=== PATIENT | male | born 1975 | race Caucasian/White ===

== ENCOUNTER 2017-05-06 17:34 | Inpatient (IN) ==
[2017-05-06 18:33] LABS: CALCIUM 8.4 mg/dL (8.8-10.2); POTASSIUM 3.4 mmol/L (3.5-5.1); TOTAL BILIRUBIN 0.4 mg/dL (0.20-1.00); TOTAL PROTEIN 6.2 g/dL (6.3-8.3)
[2017-05-06 18:35] LABS: HEMATOCRIT 17.5 % (42.0-52.0); HEMOGLOBIN 5.2 g/dL (14.0-18.0); LYMPH% 11.4 % (20.5-51.1); MANUAL DIFF NEEDED? NO; MCH 23.6 PG (27-31); MCHC 29.7 g/dL (33-37); MCV 79.5 FL (81-99); MONO# 0.47 X1000 (0.11-0.59); MONO% 6.7 % (1.7-9.3); MPV 12.6 FL (7.4-10.4); NEUT% 80.9 % (42.2-75.2); PLT 404 X1000 (130-400)
[2017-05-06] MEDS ORDERED: NS 1,000 ML IV ONE (18:43)
[2017-05-06] MEDS ORDERED: PROTONIX 80 MG in NS 80 ML IV ONE (18:56)
[2017-05-06] MEDS ORDERED: NS 1,000 ML ONE (20:11)
[2017-05-06] MEDS: PROTONIX 80 MG in NS 80 ML IV SCH (20:20)
[2017-05-06] MEDS ORDERED: ZOFRAN IV PRN (21:45)
[2017-05-06] MEDS: NS 1,000 ML IV SCH (22:33)
--- NOTE | 2017-05-06 23:03 | HISTORY AND PHYSICAL ---
CHIEF COMPLAINT: Rectal bleeding. HISTORY OF PRESENT ILLNESS: Mr. Pedraza is a 42-year-old male with a history of blood-loss anemia and GI bleeding. He has degenerative disk disease and was on opiates for several years which cause constipation and subsequent GI bleeding. He has been off all opiates since this last September and has not had a problem with his GI bleeding until the last couple of days when it started again. He has had endoscopies and colonoscopies in the past and is followed by Dr. Haynes. Protonix was given in the emergency room. Laboratory data was obtained which showed a hemoglobin and hematocrit of 5.2 and 17.5, type and screen and 4 units of packed red blood cells have been ordered. We will transfuse 2, recheck an hemoglobin and hematocrit and place the patient on CICU for further monitoring and evaluation inpatient. PAST MEDICAL HISTORY: 1. Anemia. 2. Chronic opioid use which stopped this September. 3. Degenerative disk disease. 4. GI bleeding. SURGICAL HISTORY: 1. Lumbar fusion x2. 2. Kidney stone removal. 3. Colonoscopy. 4. Endoscopy. SOCIAL HISTORY: No tobacco, alcohol or illicit drug use or abuse. FAMILY HISTORY: Patient is adopted. ALLERGY: Penicillin causing a reaction at the injection site as a teen. HOME MEDICATIONS: Fish oil and Icar C. REVIEW OF SYSTEMS: Fourteen point review of systems conducted with the patient. Pertinent positives listed above in the HPI. All other systems reviewed and found to be negative. PHYSICAL EXAMINATION: VITAL SIGNS: Temperature 98.7 degrees, pulse 101, respiration 18, blood pressure 125/79, oxygen saturation 99% on room air. GENERAL: Very pale-appearing 42-year-old male, otherwise smiling, answers all questions appropriately. Very pleasant. HEENT: Head is atraumatic, normocephalic. Pupils equal, round, reactive to light. Extraocular eye movement intact. Sclerae is anicteric. Conjunctivae is very pale. Oral mucosa is dry. NECK: Supple. No JVD. No thyromegaly. Trachea is midline. No cervical lymphadenopathy. CARDIAC: S1-S2 appreciated. No murmurs, gallops, rubs. LUNGS: Clear to auscultation bilaterally. No rhonchi, wheezes or rales. ABDOMEN: Soft, nondistended, nontender. Bowel sounds present in all 4 quadrants. Hyperactive. No pulsatile mass. No organomegaly. EXTREMITIES: No clubbing, cyanosis, or edema. 2+ pedal pulses bilaterally. GENITOURINARY: Patient voids, otherwise deferred. NEUROLOGICAL: Alert and orient x3. Cranial nerves 2-12 grossly intact. SKIN: Warm, dry, intact. Multiple tattoos noted. No acute lesions or rash. Very pale. LABORATORY DATA: WBC 7.04, hemoglobin 5.2, hematocrit 17.5, platelet count 404, 000. Sodium 140, potassium 3.4, chloride 102, carbon dioxide 21, BUN 14, creatinine 1.3. Glucose 115. ASSESSMENT AND PLAN: 1. Lower gastrointestinal bleed. Consult Dr. Haynes who sees the patient. I believe Dr. Marion Uribe is on tonight and has been acutely consulted and will place patient in CIC in inpatient status as he will likely need endoscopy/colonoscopy per Gastroenterology. I have type and cross-matched and prepared 4 units of packed red blood cells. I will transfuse 2, check a hemoglobin and hematocrit tonight at 1:00. I will continue to transfuse if hemoglobin and hematocrit is below 7 and 25. Trend hemoglobin and hematocrit. Continue Protonix drip. 2. Chronic back pain. The patient has been off of all pain medication, including nonsteroidal antiinflammatory drugs since September. We will not add pain medication to the profile at this time. 3. Hypokalemia. This is very mild, level 3.4, hopeful this will return to normal with a blood transfusion. If not, we will treat with potassium in a.m., recheck laboratory data in a.m. 4. Acute kidney injury. Again this is very mild and in the early stages likely related to acute blood loss anemia. Creatinine is 1.3. Will give normal saline at 100 mL an hour. He has had a bolus in the emergency room. The normal saline will come Ap while blood is not transfusing recheck laboratory data in a.m. Further recommendations per patient clinical course history of serum P dictating on in a Mr. Franklyn Victoria are CITLALI Pedraza for Frederick back in soda please cc a copy to Dr. Ross Barrera and Dr. Haynes. Dictated by EVY Diaz for Olmandy P. MD Mayco Seen,examined and discussed case with BODY TECHNICIAN/PAINTER. cc: EVY Diaz MD Malcolm R. Hendricks, MD Khurshid Yousuf, MD MTDD
[2017-05-07 02:31] LABS: HEMATOCRIT 21.6 % (42.0-52.0); HEMOGLOBIN 6.6 g/dL (14.0-18.0)
--- NOTE | 2017-05-07 03:50 | CONSULTATION ---
DATE OF CONSULTATION: 05/06/2017 REFERRING PHYSICIAN: Franklyn Rebollar M.D. PRIMARY CARE PROVIDER: Ross Barrera M.D. PRIMARY COLLATERAL CLERK: Emeka Haynes M.D. PRIMARY HOSPITALIST: Shikha Mao M.D. INDICATION FOR CONSULTATION: GI bleeding. HISTORY OF PRESENT ILLNESS: The patient is a 42-year-old, white male who is followed by Dr. Emeka Haynes. He has a history of recurrent peptic ulcer disease and obscure GI bleeding. He reports having a significant GI bleed approximately 4 years ago. He underwent 2 EGDs and a colonoscopy with no source of bleeding found. The bleeding stopped and he has been doing well. He was recently treated for chronic back pain. He elected to do self discontinuation of his pain medications as he became concerned about taking them. He had been chronically addicted to narcotic pain medicines for approximately 9 years. He self detoxified in August of 2017, stating that he experience withdrawal symptoms for over a month. Post withdrawal, the constipation that he had while taking narcotics had resolved. He was having 2- 3 soft bowel movements per day. On 05/03/2017, he developed heartburn, indigestion , and nausea. This was followed by multiple bowel movements consisting of bright red blood. He states that he was having 4-6 large volume, bloody bowel movements at home. He did not seek emergency attention over the weekend. He presented to our office today to see Dr. Emeka Haynes and to schedule an outpatient procedure. After eating dinner, he became lightheaded and presented to the emergency room for further evaluation. He was subsequently found to have a hemoglobin of 5.4. He is currently admitted for endoscopic evaluation. He denies chest pain, shortness of breath, fever, and chills. He reports epigastric discomfort, heartburn, and indigestion. He denies low abdominal pain, fevers, and chills. He describes bright red blood per rectum. He has been lightheaded and dizzy, although this has resolved. PAST MEDICAL HISTORY: 1. Chronic back pain. 2. Peptic ulcer disease. 3. Polysubstance abuse. 4. Narcotic addiction. 5. Opioid induced constipation, resolved. 6. Obscure GI bleeding. 7. Kidney stones. 8. Degenerative disk disease. 9. Anxiety. PAST SURGICAL HISTORY: 1. Two EGDs. 2. Colonoscopy. 3. Appendectomy. 4. Back and neck surgery. MEDICATION ALLERGIES: Penicillin. HOME MEDICATIONS: 1. Fish oil capsules. 2. Iron with vitamin C. SOCIAL HISTORY: Negative for tobacco use. He denies alcohol ingestion. He reports an addiction to opioid pain medications that were prescribed. He denies other substance abuse. Please note, his past urine toxicology screen was positive for polysubstance abuse. REVIEW OF SYSTEMS: Remarkable for mild lightheadedness and dizziness. Otherwise, the patient denies symptoms. PHYSICAL EXAMINATION: Vital Signs: On exam, his blood pressure is 121/70, pulse of 100, respirations 20, temperature of 99.2 degrees. HEENT: Negative for jaundice. His oropharyngeal mucosal membranes are dry. His conjunctivae are extremely pale. His sclerae are anicteric. Pulmonary Examination: His lungs are clear to auscultation with normal respiratory effort. His lungs are clear to auscultation, percussion, and palpation. Cardiovascular Examination: Reveals regular rhythm with a resting tachycardia. Abdominal Examination: Reveals normoactive bowel sounds. The abdomen is soft with mild epigastric discomfort. There is no rebound or guarding. Extremities: Bilaterally are negative for cyanosis, clubbing, or edema. OBJECTIVE DATA: Reveals a hemoglobin of 5.2 with hematocrit of 17.5 and a white count of 7.04. He has 404,000 platelets. His MCV is 79.5 with an MCH of 23.6. Sodium is 140, potassium 3.4, chloride 102, CO2 21, BUN 14, creatinine 1.3, with a glucose of 115. Calcium is 8.4, total bilirubin is 0.4, AST 11, ALT 8, alkaline phosphatase 61, total protein 6.2, and albumin 4. IMPRESSION: 1. Gastrointestinal bleed. 2. Profound microcytic anemia. 3. Hyperglycemia. 4. Acute kidney injury. 5. Hypokalemia. 6. Hypocalcemia. RECOMMENDATION: 1. From a GI perspective, the patient has a history of peptic ulcer disease and his symptoms began with upper GI symptoms. Although the stool was bright red blood, I recommend beginning with an EGD in the morning. 2. Please resuscitate the patient overnight by transfusing at least 2 units. 3. Please check a repeat CBC, PT/INR, and monitor for serial change in hemoglobin and hematocrit. 4. Please check a PT and an INR in the morning. He will also need a PT and INR as this has not been checked. 5. Please correct the hypokalemia that is noted. 6. Please check a magnesium and phosphorus. 7. Consent was discussed and questions were answered. 8. I would defer his colonoscopy until we have performed the EGD and cleared his stomach for a bowel prep. The patient most likely will require a colonoscopy. However, I am concerned about his ability to tolerate the prep. Therefore, I will defer any colonic procedures until we have cleared the upper GI tract. The patient is currently scheduled to have an outpatient colonoscopy with Dr. Emeka Haynes on May 16. Depending on our endoscopic findings in the morning, this procedure may be done as an outpatient. 9. Additional recommendations to follow based on his clinical course. cc: MD Ross Woo MD Khurshid Yousuf, MD Olakunle P. Akinsoto, MD MTDD
[2017-05-07] MEDS: PROTONIX 80 MG in NS 80 ML IV SCH ×2 (05:27→16:03)
[2017-05-07 06:11] LABS: MANUAL DIFF NEEDED? NO
[2017-05-07 06:21] LABS: BASO% 1.1 % (0.0-0.8); EOS# 0.02 X1000 (0.0-0.7); EOS% 0.6 % (0.0-10.0); HEMATOCRIT 21.1 % (42.0-52.0); HEMOGLOBIN 6.6 g/dL (14.0-18.0); LYMPH# 0.99 X1000 (1.2-3.4); LYMPH% 28.4 % (20.5-51.1); MCH 25.6 PG (27-31); MCHC 31.3 g/dL (33-37); MCV 81.8 FL (81-99); MONO# 0.36 X1000 (0.11-0.59); MONO% 10.3 % (1.7-9.3); MPV 12.2 FL (7.4-10.4); NEUT% 59.6 % (42.2-75.2); PLT 230 X1000 (130-400); RBC 2.58 XMIL (4.7-6.1)
[2017-05-07 06:26] LABS: INR 1.07; PROTIME 11.3 Seconds (9.2-11.7)
[2017-05-07 06:40] LABS: AGAP 12; BUN 12 mg/dL (8-22); CHLORIDE 108 mmol/L (98-107); COSMO 285; MAGNESIUM 1.9 mg/dL (1.5-2.7); POTASSIUM 3.7 mmol/L (3.5-5.1); SODIUM 143 mmol/L (136-145); TCO2 23 mmol/L (25-35)
[2017-05-07] MEDS: NS 1,000 ML IV SCH ×2 (07:29→16:49)
[2017-05-07] MEDS ORDERED: FENTANYL ONE (07:48)
[2017-05-07] MEDS ORDERED: DIPRIVAN 1% ONE ×2 (07:48→08:02)
[2017-05-07] MEDS ORDERED: XYLOCAINE-MPF 2% ONE (08:02)
[2017-05-07] MEDS: CARAFATE LIQUID PO SCH ×3 (10:42→22:00)
[2017-05-07 10:54] LABS: RETIC% 4.14 % (0.8-2.1); RETIC-HE 19.2 PG (28.2-36.6)
[2017-05-07 11:17] LABS: IRON SATURATION 5 %; TIBC 312 ug/dL; TOTAL IRON 15 ug/dL (53-167); UNBOUND IRON 297 ug/dL (112-346)
[2017-05-07 12:21] LABS: MANUAL DIFF NEEDED? NO
[2017-05-07 12:28] LABS: BASO% 1.7 % (0.0-0.8); EOS# 0.03 X1000 (0.0-0.7); EOS% 1.3 % (0.0-10.0); HEMATOCRIT 22.8 % (42.0-52.0); HEMOGLOBIN 7.1 g/dL (14.0-18.0); LYMPH# 0.84 X1000 (1.2-3.4); LYMPH% 36.4 % (20.5-51.1); MCH 25.5 PG (27-31); MCHC 31.1 g/dL (33-37); MPV 11.9 FL (7.4-10.4); NEUT% 47.6 % (42.2-75.2); PLT 181 X1000 (130-400); RBC 2.78 XMIL (4.7-6.1)
--- NOTE | 2017-05-07 15:44 | PROGRESS NOTE ---
DATE: 05/07/2017 SUBJECTIVE: Patient reports some black stools this morning. No other complaints today. He is just back from upper endoscopy. OBJECTIVE: Vital Signs: Temperature 97.4 degrees, heart rate 87, respiratory rate 16, blood pressure 127/67, O2 saturation 100% on room air. General Examination: This is a 42-year-old lying in bed and in no acute distress. HEENT: Head is normocephalic, atraumatic. Anicteric sclerae and pale conjunctivae. Mucous membranes moist. Neck: Supple. No JVD noted. No carotid bruits. No lymphadenopathy. No thyromegaly. Cardiovascular: S1, S2 heard. No murmurs, gallops, or rubs. Regular rate and rhythm. Respiratory: Clear bilaterally to auscultation. No work of breathing or using accessory muscles. Abdomen: Soft, nontender to palpation. Bowel sounds present. No organomegaly. Extremities: No clubbing, cyanosis, or edema. Peripheral pulses present in both legs. Neurological: Patient is alert and oriented x3. Able to move 4 extremities. Cranial nerves 2-12 grossly normal. LABORATORY DATA: White cell count 2.31, hemoglobin 7.1, hematocrit 22.8, platelets 181,000. BMP shows normal potassium and normal sodium. ASSESSMENT AND PLAN: 1. Lower gastrointestinal bleeding. Upper endoscopy has been performed and endoscopy results are not back yet in the computer. He has received 4 units of blood so far and the hemoglobin is still 7.1 so we are going to go ahead and transfuse 2 units more. Will see what that exam shows. If the hemoglobin keeps dropping we may need to consult General Surgery. 2. Chronic back pain. Patient was on pain medications in September and he was receiving a lot of opiates at that time. At this time he reports that he is okay. 3. Hypokalemia is completely resolved. 4. Acute kidney injury. That condition is resolved. cc: Bari Pena MD
[2017-05-07] MEDS ORDERED: DULCOLAX PO ONE (21:37)
[2017-05-07 22:26] LABS: HEMATOCRIT 25.6 % (42.0-52.0); HEMOGLOBIN 8.2 g/dL (14.0-18.0); MCH 26.4 PG (27-31); MCV 82.3 FL (81-99); MPV 11.9 FL (7.4-10.4); RBC 3.11 XMIL (4.7-6.1)
--- NOTE | 2017-05-07 22:27 | OPERATIVE NOTE ---
PROCEDURE DATE: 05/07/2017 REFERRING PHYSICIAN: Shikha aMo M.D. PRIMARY CARE PROVIDER: Ross Barrera M.D. PRIMARY DIRECTOR OF ENTERPRISE APPLICATIONS: Emeka Haynes M.D. INDICATION FOR PROCEDURE: 1. Gastrointestinal bleed. 2. History of peptic ulcer disease. 3. Profound iron-deficiency anemia. PROCEDURE PERFORMED: Esophagogastroduodenoscopy with control of bleeding. CONSENT: Informed consent was obtained from the patient prior to the procedure. The risks, benefits, and alternatives were discussed. MEDICATION: The patient received monitored anesthesia care. PERFORMING PHYSICIAN: Marion Uribe M.D. ASSISTANTS: 1. Elizabeth Crump RN. 2. Suad Simms RN. 3. Alberto Alvarez CRNA. 4. Darvin Mina M.D. (Anesthesia). COMPLICATIONS: None. ESTIMATED BLOOD LOSS: Less than 1 mL. Please note, the patient was actively bleeding at the time of the insertion of the scope with a blood loss of over 200 cc in his stomach. SPECIMENS REMOVED: None. FINDINGS: After sedation was achieved, the upper endoscope was inserted to the 2nd portion of the duodenum. The hypopharynx and tubular esophagus appeared normal. There were no varices present. In the distal esophagus, there was a Schatzki's ring at the GEJ. The GEJ was measured at 42 cm from the incisors. In the gastric lumen, there was >200 cc of blood but multiple scattered erosions that were nonbleeding. There were nonbleeding AVMs in the antrum and fundus. However, in the mid gastric body, there were 2 ulcers that ranged in size from 1.2-1.5 cm that were actively bleeding. The surrounding AVMs were also actively bleeding. Cautery was performed with hemostasis achieved. On retroflexed view, there was erosive gastritis, but no other findings. On forward view, the pylorus appeared endoscopically normal. The duodenum appeared endoscopically normal. After hemostasis was achieved, the lumen was decompressed and the scope was removed without incident. IMPRESSION: 1. Actively bleeding ulcers in the mid gastric body x2. 2. 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 3. Schatzki's ring. 4. Erosive gastritis throughout the gastric body. RECOMMENDATION: 1. Continue Protonix drip. 2. Add Carafate suspension 1 g p.o. 4 times a day x12 weeks. 3. The patient is scheduled to undergo an outpatient colonoscopy with Emeka Haynes M.D. next week. He should keep that appointment if the bleeding stops. If he continues to have bleeding later today or throughout the hospital course, or his hemoglobin drops, I recommend that he undergo a colonoscopy tomorrow or Friday before discharge. 4. Please monitor serial hemoglobin and hematocrit. He will most likely need additional blood transfusions in light of his active bleeding. 5. Consider Venofer or another IV iron supplement in light of his profound iron- deficiency anemia. 6. Additional recommendations to follow based on his clinical course. cc: MD Emeka Woo MD Malcolm R. Hendricks, MD Olakunle P. Akinsoto, MD MTDD
[2017-05-07] MEDS ORDERED: MIRALAX PO ONE (22:30)
[2017-05-08] MEDS: PROTONIX 80 MG in NS 80 ML IV SCH ×3 (01:30→21:22)
[2017-05-08] MEDS ORDERED: SANDOSTATIN IV ONE (02:01)
[2017-05-08] MEDS: NS 1,000 ML IV SCH ×2 (02:08→14:53)
[2017-05-08 02:15] LABS: MANUAL DIFF NEEDED? NO
[2017-05-08 02:23] LABS: BASO% 0.8 % (0.0-0.8); EOS# 0.02 X1000 (0.0-0.7); EOS% 0.5 % (0.0-10.0); HEMATOCRIT 29.9 % (42.0-52.0); HEMOGLOBIN 9.6 g/dL (14.0-18.0); LYMPH# 0.84 X1000 (1.2-3.4); LYMPH% 21.6 % (20.5-51.1); MCH 26.3 PG (27-31); MCHC 32.1 g/dL (33-37); MCV 81.9 FL (81-99); MONO# 0.38 X1000 (0.11-0.59); MONO% 9.8 % (1.7-9.3); MPV 11.6 FL (7.4-10.4); NEUT% 67.3 % (42.2-75.2); PLT 192 X1000 (130-400); RBC 3.65 XMIL (4.7-6.1)
[2017-05-08 02:26] LABS: INR 1.06; PROTIME 11.2 Seconds (9.2-11.7)
--- NOTE | 2017-05-08 02:43 | PROGRESS NOTE ---
DATE: 05/07/2017 SUBJECTIVE: The patient underwent an EGD today that was remarkable for actively bleeding AVMs and 2 large gastric ulcers. Over the course of the day, the patient has passed 2 large volume bloody bowel movements, despite having an EGD with control of bleeding and cauterization of the visible vessels. His hemoglobin reached a nina of 6.6, despite transfusion. At noon, his hemoglobin was 7.1, with an hematocrit of 22.8. Post-transfusion, his hemoglobin is 8.2, with a hematocrit of 25.6. However, he has not corrected appropriately for the amount of blood that he has received. To date, he has received a total of 6 units of blood. PHYSICAL EXAMINATION: Vital Signs: His blood pressure is 124/64, pulse is 60 respiration 18, temperature of 98.5 degrees. Abdomen: Soft, nontender, with no rebound or guarding. OBJECTIVE DATA: Remarkable for a hemoglobin of 8.2, with hematocrit of 25.6, and a white count of 2.88. His platelet count is 181,000. RECOMMENDATION: 1. The patient's hemoglobin has improved, but did not correct appropriately, given his 6 units of blood transfusion. He has had hemostasis on EGD after we discovered the presence of a gastric ulcer, with actively bleeding arteriovenous malformations. 2. Because of his ongoing bleeding this afternoon and evening, I will perform a colonoscopy tomorrow to assess for colonic lesions, arteriovenous malformations, ulcers, and other lesions that might be consistent with his ongoing bleeding. 3. I will check an inflammatory bowel disease profile. 4. I will check a CBC, PT/INR, CRP, and monitor his overall course. 5. Continue Protonix and Carafate as you are doing. 6. Additional recommendations to follow based on his clinical course. cc: MD Ross Woo MD Cesar Garcia-Rodriguez, MD Khurshid Yousuf, MD
[2017-05-08] MEDS: SANDOSTATIN 500 MICROGM in D5W 100 ML IV SCH ×3 (03:10→22:42)
[2017-05-08] MEDS: CARAFATE LIQUID PO SCH ×4 (04:06→21:21)
--- NOTE | 2017-05-08 04:07 | PROGRESS NOTE ---
DATE: 05/07/2017 SUBJECTIVE: The patient was receiving his bowel prep with MiraLAX, when he had a large bloody bowel movement that lasted for approximately 28 minutes. Following the passage of copious amounts of blood, he was bradycardic to 35. He had spontaneous recovery of his heart rate. Orthostatic vitals revealed a blood pressure of 34/68, with a pulse of 85 lying, blood pressure of 134/90, with a heart rate of 103 sitting, and 150/79, with a pulse of 94 standing. The bleeding continued, but at a lower rate, while he was lying in bed. I was called to the patient's bedside at approximately midnight. He had a large volume bloody bowel movement that had spontaneously resolved. PHYSICAL EXAMINATION: General: He was ill-appearing, but in no acute distress. Vital Signs: His blood pressure is 134/68 with a pulse of 85 lying. His blood pressure is 134/90, with a pulse of 103 sitting. His blood pressure was 150/79, with pulse of 94 standing. Lungs: Clear to auscultation, with normal expiratory effort. Cardiovascular: Reveals regular rate and rhythm, with no gallops or rubs. Abdominal: His abdomen was soft, with mild diffuse discomfort. OBJECTIVE DATA: Revealed a hemoglobin of 8.2, with hematocrit of 25.6, and a white count of 2.88. His platelet count was 181,000 at 2151. IMPRESSION: 1. Lower gastrointestinal bleed. 2. Volume depletion. 3. Iron deficiency anemia. RECOMMENDATIONS: 1. I recommend that the patient continue on the Protonix drip. 2. Continue Carafate suspension. 3. I recommended the patient be placed on IV Sandostatin. He was noted to have gastric arteriovenous malformations that were actively bleeding. I will administer 2 units of fresh frozen plasma in light of the patient's ongoing bleeding. He denies a history of alcohol ingestion, but he was noted to have multiple arteriovenous malformations. 4. If he continues to bleed, I will begin an octreotide drip. 5. I recommend that we consider transfer to the ICU. ADDENDUM: The nurses were called to the patient's room after my exam. The patient felt the urge to defecate. He reports passing copious amounts of bright red blood for approximately 28 minutes in the bathroom. He was diaphoretic and very pale when we were able to get him back in bed. His blood pressure had dropped to 110/98, with a heart rate of 35-39. He had spontaneous recovery of the bradycardia. Atropine was at the bedside, but was not administered. He was subsequently placed on an octreotide drip and received the fresh frozen plasma IV. He is currently being transported to the ICU. EKG revealed normal sinus rhythm. His CK level and his troponin level are within normal limits. RECOMMENDATIONS: 1. Will plan to perform a colonoscopy at 7 a.m. 2. His repeat hemoglobin post transfusion was 9.6, with hematocrit of 29.9, and a white count of 3.88. He has 192,000 platelets. His repeat PT was 11.2, with an INR of 1.06. 3. Because of the copious amount of blood per rectum, I have consulted Dr. Germán Carmona from Surgery. 4. Depending on his response to the fresh frozen plasma and the octreotide, he may benefit from a transfer to [facility] for Interventional Radiology to perform an angiogram with possible embolization. 5. Additional recommendations to follow based on his clinical course. cc: MD Ross Woo MD Khurshid Yousuf, MD Cesar Garcia-Rodriguez, MD Matthew L. Figh, MD MTDD
[2017-05-08 05:46] LABS: MANUAL DIFF NEEDED? NO
[2017-05-08 05:49] LABS: BASO% 0.9 % (0.0-0.8); EOS# 0.03 X1000 (0.0-0.7); EOS% 0.6 % (0.0-10.0); HEMATOCRIT 27.9 % (42.0-52.0); HEMOGLOBIN 8.9 g/dL (14.0-18.0); LYMPH# 0.77 X1000 (1.2-3.4); LYMPH% 16.5 % (20.5-51.1); MCH 26.3 PG (27-31); MCHC 31.9 g/dL (33-37); MCV 82.5 FL (81-99); MONO# 0.44 X1000 (0.11-0.59); MONO% 9.4 % (1.7-9.3); MPV 11.5 FL (7.4-10.4); NEUT% 72.6 % (42.2-75.2); PLT 183 X1000 (130-400); RBC 3.38 XMIL (4.7-6.1)
[2017-05-08 06:01] LABS: INR 1.04
--- NOTE | 2017-05-08 06:22 | EKG Report ---
Test Performed on : 05/07/2017 1:04:59 PM Test Reason : SB-30's Blood Pressure : / mmHG Vent. Rate : 068 BPM Atrial Rate : 068 BPM P-R Int : 172 ms QRS Dur : 090 ms QT Int : 404 ms P-R-T Axes : 022 033 032 degrees QTc Int : 429 ms Sinus rhythm. with sinus arrhythmia. with occasional premature ventricular complexes. Nonspecific T wave abnormality IIII Otherwise normal ECG No previous ECGs available Confirmed by Efren Villar DO ([id number]) on 05/11/2017 4:14:22 PM
--- NOTE | 2017-05-08 06:37 | EKG Report ---
Test Performed on : 05/08/2017 03:03:41 AM Test Reason : NO ORDER Blood Pressure : / mmHG Vent. Rate : 089 BPM Atrial Rate : 089 BPM P-R Int : 162 ms QRS Dur : 084 ms QT Int : 386 ms P-R-T Axes : 056 047 049 degrees QTc Int : 469 ms Normal sinus rhythm. Normal ECG When compared with ECG of 07-MAY-2017 13:04, (Unconfirmed) QRS is larger in III T wave inversion no longer evident in V1 Confirmed by Efren Villar DO ([id number]) on 05/11/2017 4:23:33 PM
[2017-05-08 07:23] LABS: AGAP 12; BUN 9 mg/dL (8-22); CALCIUM 7.9 mg/dL (8.8-10.2); CHLORIDE 106 mmol/L (98-107); COSMO 282; POTASSIUM 3.9 mmol/L (3.5-5.1); SODIUM 140 mmol/L (136-145); TCO2 22 mmol/L (25-35)
--- NOTE | 2017-05-08 07:28 | CONSULTATION ---
DATE OF CONSULTATION: 05/08/2017 REASON FOR CONSULTATION: Consult concerning rectal bleeding. REQUESTING PHYSICIAN: Dr. Marion Uribe. HISTORY OF PRESENT ILLNESS: A 42-year-old male with a history of anemia and GI bleeding who is on chronic opioids for degenerative disk disease. He has had previous GI bleeds in the past which have been stopped by Dr. Haynes. He came to the emergency department for an episode of rectal bleeding. At that time, it was found that he had a hematocrit of 17.5. He was started on Protonix and had been given 4 units of packed red blood cells. He was transfused. GI had been consulted and planned on a colonoscopy. They did perform an EGD, which by discussion with Dr. Uribe, essentially did not show all the potential sources for bleeding , although there was an actively bleeding ulcer and AVMs. They are planning on doing a colonoscopy for rule out lower GI source of bleeding. The patient is doing okay. He was transferred from CICU to the ICU to monitor closely. He has been hemodynamically stable while in the ICU. No major issues reported by the nursing staff. PAST MEDICAL HISTORY: 1. Anemia. 2. Chronic opioid use. 3. Degenerative disk disease. 4. History of GI bleeding. PAST SURGICAL HISTORY: 1. Lumbar fusion x2. 2. Kidney stone removal. 3. Colonoscopy. 4. Endoscopy. SOCIAL HISTORY: Denies alcohol, tobacco, or illicit drugs. FAMILY HISTORY: Unobtainable secondary to the patient being adopted. ALLERGIES: Penicillin. HOME MEDICATIONS: Icar-C and Fish Oil. REVIEW OF SYSTEMS: A full 10-point review of systems obtained, negative as specified in HPI. PHYSICAL EXAMINATION: Vital Signs: Patient is currently afebrile. His vital signs have been stable. General: No acute distress. Resting comfortably in bed. HEENT: Normocephalic, atraumatic. Pupils equal, round, react to light. Mucous membranes moist. Oropharynx benign. Neck: Supple. Trachea in midline. Cardiovascular: Regular rate and rhythm. Lungs: Grossly clear. Abdomen: Soft. Appropriately nontender at this time. Nondistended. Extremities: Moves all extremities. Neurologic: Grossly intact. Skin: No signs of jaundice. Vascular: All extremities perfused. LABORATORY: Most recent hematocrit is 27.9 which is down slightly from 29.9. Platelet count 183. INR is normal. Remainder of labs reviewed. ASSESSMENT AND PLAN: A 42-year-old male with lower gastrointestinal bleed. At this time, being followed by gastroenterology. He is being resuscitated. He is not in any kind of extremis at this moment. Plan is for colonoscopy later today. I will be available if there is an uncontrolled source of bleeding for surgical intervention, but right now, I agree with current treatment. Will follow for now. I appreciate the consult. cc: Germán Carmona MD [facility]
[2017-05-08] MEDS ORDERED: DIPRIVAN 1% ONE ×2 (10:21→10:53)
[2017-05-08] MEDS ORDERED: VERSED ONE (10:25)
--- NOTE | 2017-05-08 10:40 | PROGRESS NOTE ---
DATE: 05/08/2017 SUBJECTIVE: As per nursing staff, this patient had a big bloody stool around 2:30 a.m. today, although the blood pressure was okay and he was a little bit tachycardic so he was transferred to the intensive care unit for better monitoring. As per the patient, no more episodes of bleeding. OBJECTIVE: Vital Signs: Temperature 98.4 degrees, heart rate 56, respiratory rate 19, blood pressure 123/69, O2 saturation 98% on room air. General Examination: This is a 42-year-old, male, lying in bed, in no acute distress. HEENT: Head is normocephalic and atraumatic. Anicteric sclerae and pale conjunctivae. Mucous membranes moist. Neck: Supple. No JVD noted. No carotid bruits. No lymphadenopathy. No thyromegaly. Cardiovascular Examination: S1 and S2 heard. No murmurs, gallops, or rubs. Regular rate and rhythm. Respiratory Examination: Clear bilaterally to auscultation. No work of breathing or using accessory muscles. Abdomen: Soft, nontender to palpation. Bowel sounds present. No organomegaly. Extremities: No clubbing, cyanosis, or edema. Peripheral pulses present in both legs. Neurological Examination: Patient is alert and oriented x3. Moves 4 extremities. Laboratory Data: Hemoglobin 8.9, hematocrit 37.9. BMP unremarkable. ASSESSMENT AND PLAN: 1. Lower gastrointestinal bleeding. Upper endoscopy has been performed yesterday and apparently they found some active bleeding ulcers in the mid gastric body and also some arteriovenous malformations too. He had an episode of big, apparently rectal bleeding overnight so he was sent to the intensive care unit and gastroenterology is going to do a colonoscopy today. We will follow that report. In any case, we will prefer to keep this patient in the intensive care unit. So far, he has received 6 units of blood and the hemoglobin is still not too high. In anticipation for possible surgery, Dr. Carmona has been consulted. No surgical plans at this time. 2. Chronic back pain. The patient is not on any pain medications right now. 3. Hypokalemia, resolved. 4. Acute kidney injury. That condition is completely resolved. cc: Bari Pena MD
[2017-05-08] MEDS ORDERED: XYLOCAINE-MPF 2% ONE (10:53)
[2017-05-09] MEDS: CARAFATE LIQUID PO SCH ×5 (04:18→21:34)
[2017-05-09 05:30] LABS: MANUAL DIFF NEEDED? NO
[2017-05-09 05:32] LABS: BASO% 1.6 % (0.0-0.8); EOS# 0.07 X1000 (0.0-0.7); EOS% 2.8 % (0.0-10.0); HEMATOCRIT 27.4 % (42.0-52.0); HEMOGLOBIN 8.6 g/dL (14.0-18.0); LYMPH% 23.6 % (20.5-51.1); MCH 26.3 PG (27-31); MCHC 31.4 g/dL (33-37); MCV 83.8 FL (81-99); MONO# 0.16 X1000 (0.11-0.59); MONO% 6.3 % (1.7-9.3); MPV 12.4 FL (7.4-10.4); NEUT% 65.7 % (42.2-75.2); PLT 186 X1000 (130-400); RBC 3.27 XMIL (4.7-6.1)
[2017-05-09] MEDS: PROTONIX 80 MG in NS 80 ML IV SCH ×2 (05:59→16:12)
--- NOTE | 2017-05-09 07:17 | PROGRESS NOTE ---
DATE: 05/09/2017 SUBJECTIVE: Patient did have a colonoscopy yesterday which showed some ulcer in his rectum but no other signs of bleeding. He has been doing okay through the course of the night. Nursing staff reports no major issues. OBJECTIVE: Vital Signs: Patient is currently afebrile. His vital signs have been stable. General: No acute distress. Resting comfortably in bed. HEENT: Normocephalic, atraumatic. Pupils equal, round, react to light. Mucous membranes moist. Oropharynx benign. Neck: Supple. Trachea midline. Cardiovascular: Regular rate and rhythm. Lungs: Grossly clear. Abdomen: Soft, nontender, nondistended. Extremities: Moves all extremities. Neurologic: Grossly intact. Skin: No signs of jaundice. Vascular: All extremities perfused. LABORATORY: Reviewed. Of note, his white blood cell count is 2, hematocrit is 27, platelet count 186,000. Remainder of labs reviewed. ASSESSMENT AND PLAN: A 42-year-old male with gastrointestinal bleed # Gastrointestinal bleed. At this time, he seems to be doing okay. He is hemodynamically stable. He is currently being resuscitated. I will continue to be available as needed. cc: Germán Carmona MD
[2017-05-09] MEDS: NS 1,000 ML IV SCH ×3 (07:18→15:40)
[2017-05-09] MEDS: SANDOSTATIN 500 MICROGM in D5W 100 ML IV SCH ×2 (08:48→17:41)
--- NOTE | 2017-05-09 09:38 | PROGRESS NOTE ---
DATE: 05/09/2017 SUBJECTIVE: The patient reports no more episodes of bleeding since around 3 a.m. He is feeling fine. He denies any dizziness. He denies any vomiting blood or blood in the stools. OBJECTIVE: Vital Signs: Temperature 97.3 degrees, heart rate 47, respiratory rate 14, blood pressure 122/84, O2 saturations 98% on room air. General Examination: This is a 42-year-old male, lying in bed in no acute distress. HEENT: Head is normocephalic, atraumatic. Anicteric sclerae and pale conjunctivae. Mucous membranes moist. Neck: Supple. No JVD noted. No carotid bruits. No lymphadenopathy. No thyromegaly. Cardiovascular exam: S1, S2 heard. No murmurs, gallops, or rubs. Regular rate and rhythm. Respiratory exam: Clear bilaterally to auscultation. No work of breathing or using accessory muscles. Abdomen: Soft, a little bit distended, but nontender to palpation. Bowel sounds present. No organomegaly. Extremities: No clubbing, cyanosis, or edema. Peripheral pulses present in both legs. Neurological exam: Patient is alert and oriented x3. Moves 4 extremities. LABORATORY DATA: Hemoglobin during the last 2 days has been 9.6, 8.9 yesterday and today 8.6. No BMP from today. ASSESSMENT AND PLAN: 1. Lower gastrointestinal bleeding. Upper endoscopy has been performed because of this bleeding and, as per report, they found some active bleeding ulcers in the mid gastric body and some arteriovenous malformations as well. Because of rectal bleeding, he was transferred up here to the intensive care unit. They did a colonoscopy yesterday. The report is on the computer, but apparently we did not find anything important. On anticipation for possible surgery considering that this patient had been having a lot of bleeding, we have consulted Dr. Carmona from general surgery. Considering that the hemoglobin and hematocrit has been stable so far, they are not considering to do any surgery as per his note today. The patient is on nothing by mouth today. We are going to check with gastroenterology and see if they are planning to do any procedures today, but in any case we can transfer this patient out of the unit today. So far, he has received 6 units of blood, and hemoglobin is stable so far for the last 2 days. 2. Chronic back pain. Patient is not on any medications right now. 3. Hypokalemia, resolved. 4. Acute kidney injury, resolved. PLAN: The plan for this patient is to check with GI today if they are going to do any procedures and check if they are planning to do any other procedures in the future. If not, we can check hemoglobin and, if that is stable and no signs of bleeding noted during the next 24 hours, the patient can be safely discharged with a GI followup. cc: Bari Pena MD
--- NOTE | 2017-05-09 13:07 | Diag Imaging Result Doc PS360 ---
US GB < RUQ (LIMITED) - 05/09/2017 INDICATION: rectal hemorrhoids versus rectal varices TECHNIQUE: COMPARISON: None FINDINGS: There is extensive bowel gas. The pancreas is obscured. The liver, gallbladder, and right kidney are normal. Common bile duct measures 4 mm. Aorta, IVC, and main portal vein are patent. IMPRESSION: Negative exam. Electronically signed by Lazaro Lindsay 05/09/2017 1:05 PM
[2017-05-09] MEDS ORDERED: VASELINE TOP PRN (19:57)
[2017-05-09] MEDS ORDERED: BENTYL PO SCH (22:29)
--- NOTE | 2017-05-10 00:07 | PROGRESS NOTE ---
DATE: 05/09/2017 SUBJECTIVE: The patient states he feels significantly better today. The abdominal spasms have resolved with Bentyl. He has had only 1 episode of rectal bleeding, the patient states that he feels significantly better today. He was prescribed IV Protonix but it is on hold as he has a loss of IV. He was prescribed oral Bentyl but it has not been administered. He is currently on the octreotide drip and receiving Carafate suspension. He reports that his epigastric pain has improved considerably with Carafate. He has had only 1 episode of rectal bleeding today. His rectal discomfort has decreased considerably since he received his 1st Anusol HC suppository. OBJECTIVE DATA: Reveals a blood pressure of 118/65, pulse 49, respirations 12, temperature of 98.5 degrees. His abdominal exam reveals soft abdomen. It is nontender. LAB DATA: Reveals a hemoglobin of 8.6 with hematocrit of 27.4 and a white count of 2.54. He has 186,000 platelets. RECOMMENDATION: 1. Continue Carafate 1 g p.o. q.6 hours for total of 12 weeks. 2. Begin omeprazole 40 mg 1 p.o. daily. 3. I will discontinue the octreotide drip after 72 hours as he had actively bleeding AVMs on his EGD. 4. Begin MiraLAX 17 g once a day. He will need this to avoid constipation. 5. Please cover the hemorrhoids with a thin layer of petroleum jelly. Once he is discharged, I will place him on Preparation H ointment per rectum daily. 6. If the rectal bleeding continues, I would strongly recommend surgical intervention for hemorrhoidectomy. 7. Additional recommendations to follow based on his clinical course. cc: Germán Carmona MD [facility] HOSPITALGilberto
[2017-05-10] MEDS: NS 1,000 ML IV SCH ×2 (00:11→03:51)
[2017-05-10] MEDS: PROTONIX 80 MG in NS 80 ML IV SCH ×2 (00:11→09:54)
[2017-05-10] MEDS: ANUSOL-HC SUPP PR SCH ×2 (00:11→09:57)
[2017-05-10] MEDS: CARAFATE LIQUID PO SCH ×2 (03:51→09:55)
--- NOTE | 2017-05-10 04:25 | OPERATIVE NOTE ---
PROCEDURE DATE: 05/08/2017 REFERRING PHYSICIAN: Bari Pena M.D. PRIMARY CARE PROVIDER: Ross Barrera M.D. PRIMARY HOUSEKEEPER CHILD CARE: Emeka Haynes M.D. INDICATION FOR CONSULTATION: 1. Hematochezia. 2. Anemia, iron deficiency. 3. History of constipation. PROCEDURE PERFORMED: Colonoscopy with biopsy. CONSENT: Informed consent was obtained from the patient prior to the procedure. The risks, benefits, and alternatives were discussed with the patient. MEDICATION: The patient received monitored anesthesia care. PERFORMING PHYSICIAN: Marion Uribe M.D. ASSISTANTS: 1. ST. Radha 2. Elizabeth Crump RN. 3. Olamide Jain CRNA. 4. Porfirio Paz M.D. (anesthesia) COMPLICATIONS: There were no complications. ESTIMATED BLOOD LOSS: Less than 1 mL. SPECIMENS REMOVED: 1. Random colon. 2. Rectal polyp. FINDINGS: After sedation was achieved, the pediatric colonoscope was inserted to the terminal ileum. The terminal ileum, ileocecal valve, and appendiceal orifice appeared endoscopically normal. The ascending colon appeared grossly normal. There was diverticulosis in the ascending colon, but no evidence of diverticulitis. The transverse colon, descending colon, and sigmoid colon appeared normal. There was significant colonic spasm in the left colon. There was sigmoid diverticulosis but no diverticulitis. Random colon biopsies were obtained. In the upper rectum, there was a less than 5 mm benign-appearing colon polyp that was removed using cold biopsy forceps. In the upper rectum, there were grade 1-2 internal hemorrhoids. In the base of the rectum, there was a large rectal ulcer consistent with solitary rectal ulcer syndrome. On retroflexed view, there were large inflamed external hemorrhoids. There were at least 3 cords with superficial whitish based ulcers and clot present. There was mild oozing. There was some bleeding which appeared to be pressurized. Although it is likely hemorrhoids, once could not rule out the presence of rectal varices. After biopsies were taken and the polyp was removed, the lumen was decompressed and the scope was removed without incident. IMPRESSION: 1. Large inflamed external hemorrhoids with ulceration and active bleeding. 2. Solitary rectal ulcer. Likely secondary to constipation. 3. Grade 1-2 internal hemorrhoids. 4. Diverticulosis in the ascending and sigmoid colon with no evidence of diverticulitis. 5. Large, pressurized external hemorrhoids versus rectal varices as noted above. 6. Otherwise normal-appearing colon. CECAL INTUBATION TIME: Three minutes. WITHDRAWAL TIME: Thirteen minutes. RECOMMENDATION: 1. Because of the large inflamed hemorrhoids and what appears to be a old rectal ulcer consistent with solitary rectal ulcer syndrome, I will begin Anusol HC suppositories per rectum b.i.d. for 7 days. 2. The large hemorrhoids may be consistent with rectal varices. Please check an abdominal ultrasound to assess for cirrhosis. 3. Begin Bentyl 10 mg 1 p.o. 4 times a day for the abdominal spasms. 4. Await endoscopic biopsy results. 5. Because of the large hemorrhoids, I would strongly consider referral for hemorrhoidectomy. I discussed his care with Germán Carmona MD, who is happy to see the patient in light of the recurrent bleeding. 6. Please note, the patient has received a total of 7 units of packed red blood cells and 2 units of FFP were making this a significant lower GI bleed. 7. Dr. Emeka Haynes will return on Friday to assume care. Additional recommendations to follow per Dr. Emeka Haynes. cc: MD Bari Woo MD Malcolm R. Hendricks, MD Khurshid Yousuf, MD Matthew L. Figh, MD MTDD
[2017-05-10] MEDS: SANDOSTATIN 500 MICROGM in D5W 100 ML IV SCH (05:20)
--- NOTE | 2017-05-10 05:23 | PROVIDER DOCUMENTATION ---
This chart was entered by Mabel Carlson Scribe, acting as scribe for Franklyn Rebollar MD. HPI-Male Problem - General Chief Complaint: Rectal Bleeding Stated Complaint: "BLOOD LOSS/DIZZINESS/LACK OF ENERGY" Time Seen by Provider: 05/06/17 18:35 Source: patient Allergies/Adverse Reactions: Patient Allergies Allergy/AdvReac Type Severity Reaction Status Date / Time Penicillins Allergy RASH Verified 01/18/15 20:39 Home Medications: Home Medication List Medication Instructions Recorded Confirmed Last Taken Type Iron,Carbonyl/Ascorbic Acid [Iron 1 tab PO DAILY 05/06/17 05/06/17 05/06/17 History 100-Vitamin C Tablet] [place]-3 Fatty Acids/Fish Oil [Fish 1 each PO DAILY 05/06/17 05/06/17 05/06/17 History Oil 1,000 mg Capsule] - History of Present Illness-Male Nature of Presenting Problem: 42 Y/O M presents to ED with Male . Pt states rectal Bleeding since 4 days ago. Pt has a hx of being in the pain clinic9 1/2 years. States blood lose 4-6x a day with bleeding. Pt states he stopped taking his pain meds in September. Has been diagnosed with a heital hernia and ulcer. Pt states he began having abnormal gait and saw his gastro dr () today. Pt is extremely pale on appearance. Pt states bleeding with stool. Location of Complaint: reports: other (rectum) Radiation: reports: none Quality of Pain: reports: none Severity in ED: reports: severe Onset/Duration: reports: 4 days ago Timing: reports: still present, changing over time, getting worse Urinary Symptoms: reports: no symptoms Associated Symptoms: reports: other (rectal bleeding) Associated Symptoms: reports: dizziness, weakness, trouble walking. denies: back/neck pain, chest pain, diarrhea, muscle aches, nausea Similar Symptoms Previously?: No Recently seen or treated by another doctor?: Yes Review of Systems - Adult - REVIEW OF SYSTEMS - ADULT Constitutional: denies: chills, fever Eyes: reports: no symptoms reported Ears, Nose, Mouth & Throat: reports: no symptoms reported Cardiovascular: reports: no symptoms reported Respiratory: denies: cough, shortness of breath Gastrointestinal: reports: rectal bleeding. denies: abdominal pain, diarrhea, nausea, vomiting Genitourinary: reports: no symptoms reported Musculoskeletal: reports: no symptoms reported Integumentary: denies: hives Neurological: reports: dizziness/vertigo. denies: ataxia Psychiatric: denies: alcohol/drug dependence Endocrine: reports: no symptoms reported Hematologic/Lymphatic: denies: blood clots, easy bruising Allergic/Immunologic: reports: no symptoms reported All Other Systems: Reviewed and Negative Past History - Adult - PAST MEDICAL HISTORY-ADULT Review of Records: reports: Old Records Reviewed, Nursing Assessment Review, Medications Reviewed, Social history reviewed & non-contributory. Genitourinary: reports: kidney stones Musculoskeletal: reports: other (degenerative disc disease) Psychiatric: reports: anxiety - PRIOR SURGERIES/PROCEDURES Surgical/Procedure History: reports: appendectomy, back/neck - IMMUNIZATION STATUS Childhood Immunizations: See Nurse Assessment Flu Vaccine: See Nurse Assessment - SOCIAL HISTORY Smoking: non-smoker Substance Use: none/never Physical Exam-General - CONSTITUTIONAL General Appearance: alert, no apparent distress, other (pale) - EYES Eyes: pale conjunctivae - HEAD, EARS, NOSE, MOUTH & THROAT HENMT: moist mucous membranes, TMs normal - NECK Neck: supple, normal inspection - RESPIRATORY Respiratory: lungs clear, normal breath sounds - CARDIOVASCULAR Cardiovascular: regular rate, rhythm - LYMPHATIC Lymphatic: no adenopathy - MUSCULOSKELETAL Back Exam: no CVA tenderness Extremity: non-tender - SKIN Integumentary: negative: normal color (pale) - PSYCHIATRIC Psych/Mental Status: normal mood/affect, normal thought content, normal thought process, oriented x 3 Progress - PLAN OF CARE/RESULTS Progress/Plan/Lab Results: Laboratory Results - last 24 hr 05/06/17 17:55 Crossmatch See Detail Orders Category Date Time Status Admit - [facility] - [facility] Routine AdmDCTranf 05/06/17 21:45 Ordered Activity - Strict Bedrest ORDERED Care 05/06/17 21:45 Active Apply Mechanical Device [QM] ORDERED Care 05/06/17 21:45 Active Intake and Output-Strict ORDERED Care 05/06/17 21:45 Active Nursing- MD Consult Request ROUTINE Care 05/06/17 21:45 Completed Transfuse .Give-Transfuse Care 05/06/17 18:36 Completed Vital Signs Order Q 4-HR ASSESS Care 05/06/17 21:45 Completed Z-Document. for Tele Applied ORDERED Care 05/06/17 21:45 Completed Physician/Provider Consults Routine Cons 05/06/17 21:45 Ordered NPO Diet 05/06/17 21:01 Completed BASIC METABOLIC PANEL [CHEM] Routine Lab 05/07/17 05:25 Completed CBC WITH DIFF [HEME] Q6H Lab 05/07/17 05:25 Completed CBC WITH DIFF [HEME] Q6H Lab 05/07/17 12:00 Completed CBC WITH DIFF [HEME] Stat Lab 05/06/17 17:55 Completed CMP [COMPREHENSIVE METABOLIC PANEL] [CHEM] Stat Lab 05/06/17 17:55 Completed H/H [HGB AND HCT] [HEME] Timed Lab 05/07/17 02:00 Completed LRPC (RED CELLS) [BBK] Stat Lab 05/06/17 17:55 Completed TSH Routine Lab 05/07/17 05:25 Completed TYPE & SCREEN [BBK] Stat Lab 05/06/17 17:55 Completed 0.9% Sodium Chloride Inj [Ns] 1,000 ml Med 05/06/17 20:11 Discontinued .ROUTE As Directed 0.9% Sodium Chloride Inj [Ns] 1,000 ml Med 05/06/17 21:45 Discontinued IV 100 mls/hr 0.9% Sodium Chloride Inj [Ns] 1,000 ml Med 05/06/17 18:43 Discontinued IV 999 mls/hr 0.9% Sodium Chloride Inj [Ns] 80 ml Med 05/06/17 19:00 Discontinued Pantoprazole [Protonix] 80 mg IV 10 mls/hr Ondansetron [Zofran] Med 05/06/17 21:45 Active 4 mg IV Q4H PRN PRN Pantoprazole [Protonix] 80 mg Med 05/06/17 18:56 Discontinued 0.9% Sodium Chloride Inj [Ns] 80 ml IV NOW Telemetry [OM.EQ] Routine Oth 05/06/17 21:45 Active Transfer/Admit Order [TRANSFER] Routine Transfer 05/06/17 21:00 Completed Result Diagrams: 05/09/17 04:45 05/08/17 05:40 - CONSULTS/PCP/HOSPITALIST Notification #1 *Consult/PCP/Hospitalist*: Time Discussed: 19:53 Reason/Comments: Admit Consult Disposition: Admit (Admit accepted. Will see in Morning.) Departure - Departure Date of Disposition Decision: 05/06/17 Time of Disposition Decision: 20:00 DIAGNOSIS: GI bleed Disposition: ADMITTED INPATIENT 09 Certified Medical Emergency: Emergent Condition: Serious - Critical Care Note This patient required my direct & personal management of CC.: Yes Total Time (mins): 60 Critical Care Statement: This patient required my direct personal management to treat or rule out processes, the absence of which, could potentiallly result in sudden, clinically significant life or limb threatening deterioration. Attestation - Physician/ DELFINO Attestation Patient care was provided by Advanced Practice Provider:: No The physician spent face to face time with patient:: Yes Advanced Practice Provider documentation review:: Supervising physician onsite and consulted in the evaluation and care of this patient. The physician did have a face to face encounter with the patient. This chart was documented by the indicated scribe, (Mabel Carlson Scribe) and accurately reflects the services I performed and decisions made by me, Franklyn Rebollar MD, as attested by the provider's signature.
[2017-05-10 05:53] LABS: MANUAL DIFF NEEDED? NO
[2017-05-10 06:23] LABS: AGAP 8; BUN 7 mg/dL (8-22); CALCIUM 7.7 mg/dL (8.8-10.2); CHLORIDE 106 mmol/L (98-107); COSMO 275; POTASSIUM 3.9 mmol/L (3.5-5.1); SODIUM 139 mmol/L (136-145); TCO2 25 mmol/L (25-35)
[2017-05-10 06:31] LABS: BASO% 0.9 % (0.0-0.8); EOS# 0.04 X1000 (0.0-0.7); EOS% 1.8 % (0.0-10.0); HEMATOCRIT 24.5 % (42.0-52.0); HEMOGLOBIN 7.7 g/dL (14.0-18.0); LYMPH# 0.64 X1000 (1.2-3.4); LYMPH% 29.2 % (20.5-51.1); MCH 26.4 PG (27-31); MCHC 31.4 g/dL (33-37); MCV 83.9 FL (81-99); MONO# 0.23 X1000 (0.11-0.59); MONO% 10.5 % (1.7-9.3); MPV 12.1 FL (7.4-10.4); NEUT% 57.6 % (42.2-75.2); PLT 180 X1000 (130-400); RBC 2.92 XMIL (4.7-6.1)
[2017-05-10] MEDS ORDERED: PRILOSEC PO SCH (07:00)
[2017-05-10] MEDS: BENTYL PO SCH ×2 (09:57→12:45)
--- NOTE | 2017-05-10 11:46 | PROGRESS NOTE ---
DATE: 05/10/2017 SUBJECTIVE: I suspect he feels okay. A little bit of old blood, but nothing new like he has had in the past. No abdominal pain. He is tolerating some oral intake. OBJECTIVE: Vital Signs: No fevers. Pulse 57, blood pressure 145/78, oxygen saturation 100% on room air. General: He is alert, in no acute distress. Cardiovascular: Normal rate, regular rhythm. Abdomen: Soft, nontender, nondistended. Integument: Warm, dry, without jaundice. LABS: White count is low at 2; it has been this way for several days. Hematocrit 24; this has overall been about stable; it was 27 yesterday. Creatinine 0.9. ASSESSMENT AND PLAN: This is an 42-year-old male with lower gastrointestinal bleed. He has rectal ulcer being managed by Dr. Uribe. Pathology on the twenty-fourth shows colonic mucosa with no abnormality and a rectal hyperplastic polyp. We will continue to monitor. Overall, he seems hemodynamically stable from hematocrit standpoint, but at this point no plans for surgical intervention. cc: Anthony Morrell MD MTD
[2017-05-10 13:42] VITALS: BP 164/95
[2017-05-10] MEDS ORDERED: PROTONIX PO SCH (21:00)
--- NOTE | 2017-05-11 20:56 | DISCHARGE SUMMARY ---
ADMISSION DATE: 05/06/2017 DISCHARGE DATE: 05/10/2017 DISPOSITION: Home. FOLLOWUP: 1. Dr. Ross Barrera M.D. 2. Dr. Marion Uribe. 3. Dr. Juvenal Morrell. CONSULTATION DURING THIS ADMISSION: Gastroenterology was consulted. Patient was seen by Dr. Uribe. Surgery was consulted. Patient was seen by Dr. Carmona and Dr. Morrell. INVASIVE PROCEDURES DONE DURING THIS ADMISSION: 1. An EGD was done by Dr. Uribe which showed active bleeding ulcers in the mid gastric body x2. Active bleeding of arteriovenous malformations. Schatzki ring. Erosive gastritis. 2. A colonoscopy was done on May 09 which shows large inflamed external hemorrhoids with laceration and active bleeding. 3. Solitary rectal ulcer. 4. Grade 1 internal hemorrhoids. 5. Diverticulosis. IMAGING STUDIES OF SIGNIFICANCE: An ultrasound of the abdomen was done. It was negative. ADMISSION DIAGNOSES: 1. Lower gastrointestinal bleed. 2. Chronic back pain. 3. Hypokalemia. DIAGNOSES AT THE TIME OF DISCHARGE: 1. Gastrointestinal bleed. 2. Chronic back pain. 1. Acute kidney injury. 2. Large external hemorrhoids and also internal hemorrhoids with some ulceration. 3. Bleeding gastric ulcers and bleeding gastric arteriovenous malformations and Schatzki ring on esophagogastroduodenoscopy findings. DISCHARGE MEDICATIONS: 1. [place]-3 fatty acid. 2. Iron. 3. Hydrocortisone cream. 4. Anusol suppository. 5. Carafate 1 g p.o. q.6 hours. 6. Pantoprazole 40 mg b.i.d. FOLLOW-UP: Follow up will be with Dr. Uribe, Dr. Morrell and the PCP, Dr. Hawkins. PRESENTING COMPLAINT: Rectal bleed. HISTORY OF PRESENTING COMPLAINT: Mr. Pedraza is a 42-year-old male who presented with generalized weakness and rectal bleed. Patient was admitted, did not need any blood transfusion. Was seen by Dr. Uribe as well as Surgery. Dr. Uribe performed both EGD and colonoscopy. Surgery evaluated the patient on the day of discharge, and Dr. Morrell did not think that there was any eminent need for surgical intervention for the hemorrhoids and recommended outpatient follow up. On the day of discharge, Mr. Pedraza was completely stable. Denied any rectal bleed or melena or any vomiting. No via coffee ground vomitus or hematemesis. Vitals were stable. Blood pressure was 164/95, pulse of 63, respirations 16, temperature is 98 degrees. Physical exam is completely unremarkable. The patient was discharged in a very stable condition. I did talk with Dr. Uribe who at the time was going to transfuse the patient, but I did tell her that the patient himself wanted to go home and I thought that clinically he was stable enough to go, did not show any signs of active bleeding and he will follow up with her as well as with all the other subspecialties were involved with his care. At the time of discharge, there was not any pending laboratory or imaging studies. TIME SPENT: The time spent for discharge was 33 minutes. cc: Lennox Richey MD
[2017-05-13] MEDS ORDERED: PROTONIX IV SCH
== END 2017-05-10 14:34 | disposition home or self-care (01) ==
LOC: ED 17:34 → 3S 21:13 → SUATTDRO 21:13 → ICU 05-08 03:34 → 4N 05-09 22:29
PROVIDERS: ATTEND Internal Medicine